=== PATIENT | female | born 1990 | race Caucasian/White ===

== ENCOUNTER 2019-01-11 20:46 | Inpatient (IN) | payer MEDICAID, OTHER ==
[~2019-01-11] VITALS: Ht 154.9 cm; Wt 63.6 kg
[2019-01-11 21:37] LABS: BASOPHILS # (AUTO) 0.1 X10'3 (0-0.2); BASOPHILS % (AUTO) 0.5 % (0-1); EOSINOPHILS # (AUTO) 0.1 X10'3 (0-0.9); EOSINOPHILS % (AUTO) 0.3 % (0-6); HEMATOCRIT 41.3 % (35.0-45.0); LYMPHOCYTES # (AUTO) 1.8 X10'3 (1.1-4.8); LYMPHOCYTES % (AUTO) 12.1 % (21-51); MEAN CORPUSCULAR HEMOGLOBIN 31.7 PG (27.0-31.0); MEAN CORPUSCULAR HGB CONC 33.9 g/dL (33.0-36.5); MEAN CORPUSCULAR VOLUME 93.4 FL (78-98); MEAN PLATELET VOLUME 8.1 FL (7.4-10.4); MONOCYTES # (AUTO) 1.2 X10'3 (0-0.9); MONOCYTES % (AUTO) 8.2 % (2-12); NEUTROPHILS % (AUTO) 78.9 % (42-75); PLATELET COUNT 292 X10'3 (140-440); RED BLOOD COUNT 4.42 X10'6 (4.20-5.60); RED CELL DISTRIBUTION WIDTH 13.2 % (11.5-14.5); WHITE BLOOD COUNT 15.2 X10'3 (4.5-11.0)
[2019-01-11 21:46] LABS: ALANINE AMINOTRANSFERASE 30 U/L (12-78); ALBUMIN 3.9 G/DL (3.4-5.0); ALKALINE PHOSPHATASE 51 IU/L (46-116); ANION GAP 9 (8-16); ASPARTATE AMINO TRANSFERASE 18 U/L (10-37); BILIRUBIN,TOTAL 0.6 MG/DL (0.1-1.0); BLOOD UREA NITROGEN 13 MG/DL (7-18); BUN/CREATININE RATIO 23.2 (6.6-38.0); CALCIUM 8.8 MG/DL (8.5-10.1); CHLORIDE 102 MMOL/L (99-107); CREATININE 0.56 MG/DL (0.40-0.90); GLUCOSE 101 MG/DL (70-104); POTASSIUM 3.7 MMOL/L (3.5-5.1); SODIUM 138 MMOL/L (135-145); TOTAL CARBON DIOXIDE 26.8 MMOL/L (24-32); TOTAL PROTEIN 7.7 G/DL (6.4-8.2); eGFR > 90 ML/MIN
[2019-01-11 22:19] LABS: URINE HCG NEGATIVE (NEG)
[2019-01-11 22:19] LABS: TOTAL CELLS COUNTED 100
[2019-01-11] MEDS ORDERED: normal saline 1000ML IV soln IVB ONE (22:20)
[2019-01-11] MEDS ORDERED: ondansetron/PF 4mg/2ml inj IV ONE (22:20)
[2019-01-11 22:21] LABS: PLATELET ESTIMATE NORMAL
[2019-01-11 22:25] LABS: CLARITY,URINE SLIGHTLY CLOUDY (Clear); COLOR,URINE YELLOW (Yellow); GLUCOSE, URINE NEGATIVE (Neg); KETONES,URINE NEGATIVE (Neg); LEUKOCYTE ESTERASE ,URINE NEGATIVE (Neg); NITRITES, URINE NEGATIVE (Neg); OCCULT BLOOD,URINE TRACE-INTACT (Neg); PH,URINE 7.5 (4.8-8.0); PROTEIN,URINE TRACE mg/dl (Neg); UROBILINOGEN,URINE 0.2 E.U/dL (0.2-1.0)
[2019-01-11 22:30] LABS: URINE AMPHETAMINE SCREEN NEGATIVE (Neg); URINE BARBITUATE SCREEN NEGATIVE (Neg); URINE BENZODIAZEPINES SCREEN NEGATIVE (Neg); URINE CANNABINOID SCREEN POSITIVE (Neg); URINE COCAINE SCREEN NEGATIVE (Neg); URINE METHADONE SCREEN NEGATIVE (Neg); URINE OPIATE SCREEN NEGATIVE (Neg); URINE PHENCYCLIDINE SCREEN NEGATIVE (Neg)
[2019-01-11] MEDS ORDERED: proCHLORperazine 10 MG/2 ml inj IV ONE (22:35)
[2019-01-11] MEDS ORDERED: iohexol 300mg/ml 100ml inj. ONE (22:36)
[2019-01-11 22:40] LABS: UA COLLECTION TYPE CLN CATCH MIDSTREAM
[2019-01-11 22:41] LABS: AMORPHOUS PHOSPHATES 4+; BACTERIA,URINE FEW /HPF (Neg); RBC,URINE 0-2 /HPF (0-2); SQUAMOUS EPITHELIAL CELL,UR FEW /LPF (FEW); WBC,URINE NONE SEEN /HPF (0-4)
[2019-01-11] MEDS ORDERED: piperacillin/tazo 3.375gm/50ml 50 ML IV SCH (23:35)
[2019-01-11] MEDS ORDERED: dextrose 5%-1/2 normal saline 1,000 ML IV SCH (23:44)
[2019-01-11] MEDS ORDERED: morphine 4 MG/ML inj SYRINge IV ONE (23:45)
[2019-01-11] MEDS ORDERED: HYDROcodone/acetaminophen 10/325mg tab PO PRN (23:45)
[2019-01-11] MEDS ORDERED: ondansetron/PF 4mg/2ml inj IV PRN (23:45)
[2019-01-11] MEDS ORDERED: magnesium hydroxide 30ml (MOM) UD suspension PO PRN (23:45)
[2019-01-11] MEDS ORDERED: LORazepam 2 mg/ml vial IV ONE (23:45)
[2019-01-11] MEDS ORDERED: HYDROcodone/acetaminophen 5mg/325mg tablet PO PRN (23:45)
[2019-01-11] MEDS ORDERED: acetaminophen 325mg tablet PO PRN (23:45)
[2019-01-11] MEDS ORDERED: ceFAZolin 1GM/D5W- ADD-VANTAGE 50 ML IV STA (23:45)
[2019-01-11] MEDS ORDERED: morphine 4 MG/ML inj SYRINge IV PRN ×2 (23:45)
[2019-01-11] MEDS ORDERED: piperacillin/tazo 3.375gm/50ml 50 ML IV ONE (23:45)
[2019-01-11] MEDS ORDERED: mag hydrox/Alum hydrox/simeth 30ml oral suspension PO PRN (23:45)
[2019-01-12] VITALS (16 sets, daily range): BP systolic 104–163; BP diastolic 57–99
[2019-01-12] MEDS ORDERED: metroNIDAZOLE-Flagyl 500mg/NS 100 ML IV SCH
[2019-01-12 05:16] LABS: PARTIAL THROMBOPLASTIN TIME 28 SECONDS (22-32); PROTHROMBIN TIME 10.6 SECONDS (9.0-12.0)
[2019-01-12 05:19] LABS: ALANINE AMINOTRANSFERASE 20 U/L (12-78); ALBUMIN 2.9 G/DL (3.4-5.0); ALBUMIN/GLOBULIN RATIO 0.9 (1.1-1.5); ALKALINE PHOSPHATASE 46 IU/L (46-116); ANION GAP 9 (8-16); ASPARTATE AMINO TRANSFERASE 17 U/L (10-37); BILIRUBIN,TOTAL 0.7 MG/DL (0.1-1.0); BLOOD UREA NITROGEN 9 MG/DL (7-18); BUN/CREATININE RATIO 16.4 (6.6-38.0); CALCIUM 7.6 MG/DL (8.5-10.1); CHLORIDE 105 MMOL/L (99-107); CREATININE 0.55 MG/DL (0.40-0.90); GLUCOSE 113 MG/DL (70-104); POTASSIUM 3.3 MMOL/L (3.5-5.1); SODIUM 138 MMOL/L (135-145); TOTAL CARBON DIOXIDE 23.6 MMOL/L (24-32); TOTAL PROTEIN 6.1 G/DL (6.4-8.2); eGFR > 90 ML/MIN
[2019-01-12 05:28] LABS: HEMOGLOBIN 12.2 g/dl (12.0-16.0); MEAN CORPUSCULAR HEMOGLOBIN 32.3 PG (27.0-31.0); RED BLOOD COUNT 3.78 X10'6 (4.20-5.60); WHITE BLOOD COUNT 13.4 X10'3 (4.5-11.0)
[2019-01-12 05:30] LABS: BASOPHILS % (AUTO) 0.1 % (0-1); EOSINOPHILS % (AUTO) 0.3 % (0-6); HEMATOCRIT 35.2 % (35.0-45.0); LYMPHOCYTES # (AUTO) 0.8 X10'3 (1.1-4.8); LYMPHOCYTES % (AUTO) 5.7 % (21-51); MEAN CORPUSCULAR HGB CONC 34.6 g/dL (33.0-36.5); MEAN CORPUSCULAR VOLUME 93.2 FL (78-98); MEAN PLATELET VOLUME 8.3 FL (7.4-10.4); MONOCYTES # (AUTO) 0.7 X10'3 (0-0.9); MONOCYTES % (AUTO) 5.4 % (2-12); NEUTROPHILS # (AUTO) 11.9 X10'3 (1.8-7.7); NEUTROPHILS % (AUTO) 88.5 % (42-75); PLATELET COUNT 234 X10'3 (140-440); RED CELL DISTRIBUTION WIDTH 13.3 % (11.5-14.5)
--- NOTE | 2019-01-12 05:58 | NUR ---
Potassium 3.3. Dr. Corrales contacted. No replacement orders at this time.
[2019-01-12] MEDS ORDERED: BUPIVAcaine/PF 2.5mg/ml (0.25%) 10ml vial ONE (06:22)
[2019-01-12] MEDS ORDERED: LIDOcaine 1% 30ml preserv. free vial ONE (06:22)
--- NOTE | 2019-01-12 06:38 | NUR ---
Patient in room 346b. I have received report from BARBARA Melgar and had the opportunity to ask questions and assume patient care.
--- NOTE | 2019-01-12 06:39 | NUR ---
Patient down to OR via bed accompanied by x1 staff.
--- NOTE | 2019-01-12 06:40 | NUR ---
Problems reprioritized. Patient report given, questions answered & plan of care reviewed with BRABARA Miller.
--- NOTE | 2019-01-12 06:41 | NUR ---
0800 dose of Flagyl sent down to OR with patient.
[2019-01-12] MEDS ORDERED: sevoflurane 250ml liquid IH ONE (07:04)
[2019-01-12] MEDS ORDERED: propofol inj 20 ML IV ONE (07:06)
[2019-01-12] MEDS ORDERED: fentaNYL/PF 50MCG/1 ML 2ML syringe ONE (07:06)
[2019-01-12] MEDS ORDERED: rocuronium 10mg/ml inj IV ONE (07:06)
[2019-01-12] MEDS ORDERED: cefotetan 2gm/isosm dext IVPB 50 ML IV ONE (07:07)
[2019-01-12] MEDS ORDERED: midazolam 2 mg/2 ml injection ONE (07:11)
[2019-01-12 07:15] LABS: PLATELET ESTIMATE NORMAL; TOTAL CELLS COUNTED 100
[2019-01-12] MEDS ORDERED: ondansetron/PF 4mg/2ml inj ONE (07:38)
[2019-01-12] MEDS ORDERED: dexamethasone sod phosphate 4mg/ml inj. ONE (07:38)
[2019-01-12] MEDS ORDERED: glycopyrrolate 0.2mg/ml inj ONE (07:39)
[2019-01-12] MEDS ORDERED: neostigmine methylsulfate 1 MG/ML 10ml vial ONE (07:39)
[2019-01-12] MEDS ORDERED: ringers solution, lacted 1,000 ML IV SCH (07:41)
[2019-01-12] MEDS ORDERED: ondansetron/PF 4mg/2ml inj IV PRN (07:45)
[2019-01-12] MEDS ORDERED: morphine 4 MG/ML inj SYRINge IV PRN ×2 (07:45)
[2019-01-12] MEDS ORDERED: proCHLORperazine 10 MG/2 ml inj IV PRN (07:45)
[2019-01-12] MEDS ORDERED: meperidine/PF 25mg/ml syringe IV PRN ×3 (07:45)
--- NOTE | 2019-01-12 07:54 | NUR ---
Received from OR via , accompanied by Anesthesiologist dr. brewster and report given by Anesthesiolgist. Patient a&ox4, patient vss as charted, 10L O2 in place sating at 98%, scds in place, lap sites x3 cdi, abd soft to touch. will contiune to monitor.
[2019-01-12] MEDS ORDERED: CEFOXITIN IV SCH (08:00)
[2019-01-12] MEDS ORDERED: HYDR-4383 PO (08:00)
[2019-01-12] MEDS ORDERED: levoFLOXACIN-Levaquin 500mg/D5 100 ML IV SCH (08:00)
[2019-01-12] MEDS ORDERED: ADDVANTAGE IV SCH (08:00)
[2019-01-12] MEDS ORDERED: acetaminophen 325mg tablet PO SCH (08:00)
[2019-01-12] MEDS ORDERED: NORMAL SALINE IV SCH (08:00)
[2019-01-12] MEDS ORDERED: cefotetan 1gm/50ml IVPB 50 ML IV SCH (08:00)
[2019-01-12] MEDS ORDERED: ketorolac trometh. 30mg/ml inj. IV SCH (08:00)
--- NOTE | 2019-01-12 08:34 | NUR ---
Report called to receiving nurse VIKTORIYA. Transferred via [facility] . Special Issues communicated to receiving nurse.PATIENT A&OX4, VSS CHARTED, SCD'S IN PLACE, LAP SITES TO ABD X3 CDI.
--- NOTE | 2019-01-12 08:43 | NUR ---
Patient returned back to room 346B via bed accompanied by x2 staff. Patient is A&O and c/o 5/10 abd pain. Will administer pain med as ordered. x3 lap sites to abd covered with bandaids which are CDI.
--- NOTE | 2019-01-12 11:26 | NUR ---
PATIENT HAS BEEN NON COMPLIANT WITH POST OP VITALS AND REMOVING BLOOD PRESSURE CUFF. SHE HAS BEEN IN AND OUT OF THE BATHROOM FREQUENTLY STATING SHE NEEDS TO VOID. EDUCATED PATIENT IMPORTANCE OF MONITORING VITALS POST OP.
[2019-01-12] MEDS ORDERED: NO HOME MEDS (11:39)
--- NOTE | 2019-01-12 13:58 | NUR ---
DISCUSSED WITH PATIENT DISCHARGE INSTRUCTIONS. EDUCATED PATIENT ON NEW PRESCRIPTION FOR NORCO. PATIENT VERBALIZES UNDERSTANDING OF TEACHING. NORCO PRESCRIPTIONS GIVEN TO PATIENT BY THE [facility] BEDS[facility] STAFF, CARMITA. PATIENT WAS ALERT AND ORIENTED AND IN NO APPARENT DISTRESS AT TIME OF DC. PATIENT WAS DC'D VIA WHEELCHAIR ACCOMPANIED BY X1 STAFF AND X3 OF HER VISITORS. ALL OF HER PERSONAL BELONGINGS WERE DC'D WITH HER.
== END 2019-01-12 14:05 | disposition home or self-care (01) | DRG 233 ==
LOC: ER 20:47 → SUR 3N 23:44 → CMPBEDREQ 01-12 00:37 → PACU 01-12 06:37 → SUR 3N 01-12 08:47
PROVIDERS: ADMIT Internal Medicine; ATTEND Surgery
PROC: BW211ZZ Computerized Tomography (CT Scan) of Abdomen and Pelvis using Low Osmolar Contrast (ICD-10-PCS; 2019-01-11)
PROC: 0DTJ4ZZ Resection of Appendix, Percutaneous Endoscopic Approach (ICD-10-PCS; principal; 2019-01-12 07:04)
DX: K35.30 Acute appendicitis with localized peritonitis, without perforation or gangrene (principal); F12.90 Cannabis use, unspecified, uncomplicated; R63.0 Anorexia; F17.210 Nicotine dependence, cigarettes, uncomplicated; Z88.0 Allergy status to penicillin; Z68.26 Body mass index [BMI] 26.0-26.9, adult
CPT/HCPCS: 36415; 71045; 74177; 80053; 80305; 81001; 81025; 84484; 85025; 85610; 85730; 87070; 93005; 96361; 96374; 96375; 99285; A7000; G0378; J0690; J0780; J1100; J1885; J1956; J2060; J2250; J2405; J2543; J2704; J2710; J3010; J3490; J7120; Q9967

== ENCOUNTER 2020-01-27 13:03 | Emergency (ER) | payer MEDICAID ==
[~2020-01-27] VITALS: Ht 154.9 cm; Wt 66.8 kg
[~2020-01-27 13:03] MED LIST: HYDR-4383 PO; NO HOME MEDS
[2020-01-27 13:38] VITALS: BP 120/73
[2020-01-27 15:12] LABS: BASOPHILS # (AUTO) 0.1 X10'3 (0-0.2); BASOPHILS % (AUTO) 0.9 % (0-1); EOSINOPHILS # (AUTO) 0.1 X10'3 (0-0.9); EOSINOPHILS % (AUTO) 1.6 % (0-6); HEMATOCRIT 39.9 % (35.0-45.0); HEMOGLOBIN 13.8 g/dl (12.0-16.0); LYMPHOCYTES # (AUTO) 2.6 X10'3 (1.1-4.8); LYMPHOCYTES % (AUTO) 27.6 % (21-51); MEAN CORPUSCULAR HEMOGLOBIN 31.4 PG (27.0-31.0); MEAN CORPUSCULAR HGB CONC 34.6 g/dL (33.0-36.5); MEAN CORPUSCULAR VOLUME 90.8 FL (78-98); MONOCYTES # (AUTO) 0.8 X10'3 (0-0.9); MONOCYTES % (AUTO) 8.7 % (2-12); NEUTROPHILS # (AUTO) 5.7 X10'3 (1.8-7.7); NEUTROPHILS % (AUTO) 61.2 % (42-75); PLATELET COUNT 348 X10'3 (140-440); RED CELL DISTRIBUTION WIDTH 14.2 % (11.5-14.5); WHITE BLOOD COUNT 9.4 X10'3 (4.5-11.0)
[2020-01-27 15:15] LABS: CLARITY,URINE CLOUDY (Clear); COLOR,URINE YELLOW (Yellow); GLUCOSE, URINE NEGATIVE (Neg); KETONES,URINE NEGATIVE (Neg); LEUKOCYTE ESTERASE ,URINE NEGATIVE (Neg); NITRITES, URINE NEGATIVE (Neg); OCCULT BLOOD,URINE NEGATIVE (Neg); PH,URINE 8.5 (4.8-8.0); PROTEIN,URINE NEGATIVE (Neg); UA COLLECTION TYPE VOIDED
[2020-01-27 15:27] LABS: BACTERIA,URINE 1+ /HPF (Neg); MUCUS STRANDS MANY /LPF (Neg); RBC,URINE NONE SEEN /HPF (0-2); SQUAMOUS EPITHELIAL CELL,UR MANY /LPF (FEW); WBC,URINE NONE SEEN /HPF (0-4)
[2020-01-27 15:28] LABS: AMORPHOUS PHOSPHATES 4+
[2020-01-27 15:30] LABS: ALANINE AMINOTRANSFERASE 31 U/L (12-78); ALBUMIN 3.9 G/DL (3.4-5.0); ALKALINE PHOSPHATASE 48 IU/L (46-116); ANION GAP 8 (8-16); ASPARTATE AMINO TRANSFERASE 14 U/L (10-37); BILIRUBIN,TOTAL 0.3 MG/DL (0.1-1.0); BLOOD UREA NITROGEN 11 MG/DL (7-18); BUN/CREATININE RATIO 16.9 (6.6-38.0); CALCIUM 8.8 MG/DL (8.5-10.1); CHLORIDE 106 MMOL/L (99-107); CREATININE 0.65 MG/DL (0.40-0.90); GLUCOSE 86 MG/DL (70-104); POTASSIUM 3.7 MMOL/L (3.5-5.1); SODIUM 140 MMOL/L (135-145); TOTAL CARBON DIOXIDE 26.3 MMOL/L (24-32); TOTAL PROTEIN 7.8 G/DL (6.4-8.2); eGFR > 90 ML/MIN
[2020-01-27 15:55] LABS: BETA HCG,QUANTITATIVE 8541 mIU/ml
== END 2020-01-27 16:45 | disposition home or self-care (01) ==
LOC: ER 13:03
DX: O26.891 Other specified pregnancy related conditions, first trimester (principal); K59.00 Constipation, unspecified; R10.30 Lower abdominal pain, unspecified; Z3A.01 Less than 8 weeks gestation of pregnancy; Z88.0 Allergy status to penicillin; Z79.899 Other long term (current) drug therapy
CPT/HCPCS: 36415; 80053; 81001; 84702; 85025; 99283